=== PATIENT | female | born 1990 | race Two or more races ===

== ENCOUNTER 2021-06-01 11:07 | Emergency (ER) | payer SELFPAY ==
[~2021-06-01] VITALS: Ht 160 cm; Wt 50.0 kg
[2021-06-01 11:29] VITALS: BP 120/89
[2021-06-01] MEDS ORDERED: QUET200T5 PO (11:33)
[2021-06-01] MEDS ORDERED: PARO40TA PO (11:33)
--- NOTE | 2021-06-01 11:58 | NUR ---
pt seen and dc'd by provider
== END 2021-06-01 12:00 | disposition home or self-care (01) ==
LOC: ER 11:09
DX: F32.9 Major depressive disorder, single episode, unspecified (principal); Z76.0 Encounter for issue of repeat prescription
CPT/HCPCS: 99281